=== PATIENT | female | born 1980 | race Two or more races ===

== ENCOUNTER 2018-07-25 09:12 | Emergency (ER) | payer BC ==
[~2018-07-25] VITALS: Ht 167.6 cm; Wt 61.2 kg
[2018-07-25] MEDS ORDERED: TETRACAINE HCL/PF 0.5% UD 2 ML BOTTLE ONE (09:35)
[2018-07-25] MEDS ORDERED: FLUORESCEIN SODIUM OPHTH 1 EA STRIP ONE (09:35)
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
[2018-07-25] MEDS: TETRAcaine 5 ML BOTTLE EACHEYE ONE (09:50)
[2018-07-25] MEDS: FLUORESCEIN SODIUM OPHTH 1 EA STRIP OP ONE (09:50)
[2018-07-25 10:06] VITALS: BP 130/80
--- NOTE | 2018-07-25 10:06 | NUR ---
Patient discharged to home in stable condition. Written and verbal after care instructions given. Patient verbalizes understanding of instruction.
== END 2018-07-25 10:07 | disposition home or self-care (01) ==
LOC: ER 09:13
DX: S05.8X2A Other injuries of left eye and orbit, initial encounter (principal); Z91.018 Allergy to other foods; W26.8XXA Contact with other sharp object(s), not elsewhere classified, initial encounter; Y93.89 Activity, other specified; Y92.89 Other specified places as the place of occurrence of the external cause; Y99.8 Other external cause status
CPT/HCPCS: A4606; A6410; Z7610

== ENCOUNTER 2020-06-24 10:05 | Emergency (ER) | payer BC ==
[~2020-06-24] VITALS: Ht 170.2 cm; Wt 70.8 kg
--- NOTE | 2020-06-24 10:08 | NUR ---
CAME IN FOR COUGHM CONGESTION AND SOB SINCE YESTERDAY. TO ER BED 7, HOOKED TO MONITOR, CHANGED TO HOSP GOWN, WARM BLANKET PROVIDED, PATIENT AAO x 4, AWAITING MD MEEK.
[2020-06-24] MEDS ORDERED: ALBUTEROL SULFATE INH 18 GM HFA.AER.AD IH PRN (10:30)
--- NOTE | 2020-06-24 10:54 | NUR ---
PATIENT REFUSED RAPID COVID SWAB, MADE AWARE
--- NOTE | 2020-06-24 10:55 | NUR ---
pt refusing rapid covid19 test.
--- NOTE | 2020-06-24 11:36 | NUR ---
Patient discharged to home in stable condition. Written and verbal after care instructions given. Patient verbalizes understanding of instruction.
[2020-06-24 11:37] VITALS: BP 141/71
== END 2020-06-24 11:37 | disposition home or self-care (01) ==
LOC: ER 10:07
DX: U07.1 COVID-19 (principal); J40 Bronchitis, not specified as acute or chronic
CPT/HCPCS: 71045-TC

== ENCOUNTER 2021-02-17 23:32 | Emergency (ER) | payer BC ==
[~2021-02-17] VITALS: Ht 165.1 cm; Wt 59.0 kg
--- NOTE | 2021-02-17 23:48 | NUR ---
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 PT STATED " I WOKE UP FEELING IM ABOUT TO PASS OUT." PT AAOX4, VSS, RESPIRATIONS EVEN AND UNLABORED ON RA W/ NAD NOTED. PT CONNECTED TO THE SET DECORATOR AND POX
--- NOTE | 2021-02-18 00:03 | NUR ---
BLOOD COLLECTED AND SENT TO LAB
[2021-02-18 00:12] LABS: BASOPHILS % (AUTO) 0.5 % (0.0-2.0); EOSINOPHILS % (AUTO) 1.6 % (0.0-6.0); HEMATOCRIT 39 % (33-45); HEMOGLOBIN 12.9 g/dL (11.5-14.8); LYMPHOCYTES # (AUTO) 2.8 /CMM (0.8-4.8); MEAN CORPUSCULAR HGB CONC 34 g/dl (31.0-36.0); MEAN CORPUSCULAR VOLUME 89 fL (82-100); MONOCYTES # (AUTO) 0.5 /CMM (0.1-1.30); MONOCYTES % (AUTO) 7.9 % (2.0-12.0); NEUTROPHILS # (AUTO) 3.3 /CMM (1.8-8.9); PLATELET COUNT (AUTO) 369 /CMM (150-450); RED BLOOD CELL COUNT(AUTO) 4.32 MIL/uL (4.0-5.2); WHITE BLOOD COUNT (AUTO) 6.7 K/uL (4.3-11.0)
[2021-02-18 00:25] LABS: CALCIUM, SERUM 9.5 mg/dL (8.5-10.1); CARBON DIOXIDE 26 mmol/L (21-32); CHLORIDE 102 mmol/L (98-107); CREATININE 0.6 mg/dL (0.6-1.3); GLUCOSE 117 mg/dL (74-106); POTASSIUM 3.5 mmol/L (3.5-5.1); SODIUM SERUM 138 mmol/L (136-145); UREA NITROGEN, BLOOD 9 mg/dL (7-18)
--- NOTE | 2021-02-18 00:47 | NUR ---
Patient discharged to home in stable condition. Written and verbal after care instructions given. Patient verbalizes understanding of instruction.pt. ambulatory with a steady gait
[2021-02-18 00:48] VITALS: BP 107/54
== END 2021-02-18 00:48 | disposition home or self-care (01) ==
LOC: ER 23:35
DX: R00.2 Palpitations (principal); R42 Dizziness and giddiness; R00.0 Tachycardia, unspecified; Z91.018 Allergy to other foods
CPT/HCPCS: 36415; 80048-TC; 84484-TC; 85025-TC